=== PATIENT | male | born 1945 | race Caucasian/White ===

== ENCOUNTER → 2016-05-27 | Day surgery (SDC) | payer OTHER ==
[~2016-05-27] VITALS: Ht 172.7 cm; Wt 109.0 kg
[~2016-05-27] MED LIST: ACETAMINOPHEN 325 MG TAB PO PRN; ARIP2TAB3 PO; ATROPINE SULFATE 0.1 MG/ML 5ML SYR IV PRN; CITA40TA4 PO; DC ALL ANTICOAGULANTS ONE; DILT180C9 PO; HYT/10 PO; MECL1TAB42 PO; METH500T37 PO; MIDAZOLAM HCL 1 MG/ML 2ML VIAL ONE; OMEP40CA41 PO; ONDANSETRON INJ 2 MG/ML 2 ML VIAL IV PRN; SERT50TA PO; SIMV20TA5 PO; SODIUM CHLORIDE 0.9% 1000ML 1,000 ML IV ONE; SODIUM CHLORIDE 0.9% 1000ML 1,000 ML IV SCH; SODIUM CHLORIDE 0.9% 1000ML 250 ML IV PRN; TRAM-10 PO; ZCR40
[2016-05-27 07:18] VITALS: Ht 172.7 cm; Wt 109.0 kg
[2016-05-27 07:19] VITALS: BP 160/108; PULSE 91; TEMP 36.3; O2SAT 94
--- NOTE | 2016-05-27 08:21 | Procedure Note ---
Pre-Mod Sedation Assessment General Date of Moderate Sedation: May 27, 2016. Vital Signs: Vital Signs Past 12 Hours Date Time Temp Pulse Resp B/P Pulse Ox O2 Delivery O2 Flow Rate FiO2 05/27/16 07:19 36.3 91 16 160/108 94 Room Air Review Cardiovascular: regular rate, rhythm, + systolic murmur Abdomen: normal bowel sounds, non tender, soft Lungs: lungs clear, normal breath sounds Airway Class: I Pre-Sedation Airway Assessment Oral Cavity: Dentures, WNL Able to Visualize Vocal Cords: No Short Thick Neck: No Hx of Sleep Apnea: Yes Smoking Status: Former Smoker ASA Classification: Class I Procedure Planning Contraindications-for Mod Sed: None Yes Notes The planned sedation has been discussed with the patient and consent obtained. I have identified the patient, determined the appropriateness of sedation and have assessed the patient immediately prior to the procedure. All medicine(s) and interventions are by my order.
--- NOTE | 2016-05-27 08:47 | HISTORY & PHYSICAL EXAMINATION ---
DATE OF ADMISSION: 05/27/2016 CHIEF COMPLAINT: Aortic stenosis. HISTORY OF PRESENT ILLNESS: This is a 71-year-old male patient who I saw in the office in early April. He has a history of depression and had a resting tachycardia, I believe from his antidepressants, which have been adjusted and his tachycardia improved. The patient by echocardiography was noted to have moderate to severe aortic stenosis. The patient has been experiencing some shortness of breath with activity. The echocardiogram was not of the best quality and to determine the etiology of his shortness of breath and the extent of his aortic stenosis, so I thought it is best that we performed a cardiac catheterization. ALLERGIES: No known medical allergies. PAST MEDICAL HISTORY: The patient has a history of GERD and mild essential hypertension. He also has a history of dyslipidemia. He has benign prostatic hypertrophy with and previously has had some urinary tract retention. SOCIAL HISTORY: He is a nonsmoker. He is and lives with his . He stopped smoking in 1989. FAMILY MEDICAL HISTORY: Noncontributory. REVIEW OF SYSTEMS: A 10-point review of systems is negative except for the history of chief complaint. PHYSICAL EXAMINATION: GENERAL: He is alert and oriented, in no acute distress. VITAL SIGNS: Blood pressure 140/80, pulse is regular at 90 beats per minute. He is afebrile. HEENT: He is normocephalic. Pupils are equal and reactive to light. Extraocular muscles are intact bilaterally. NECK: The neck veins are flat. Carotids have good upstrokes bilaterally without bruits. Thyroid is nonpalpable. RESPIRATORY: Breath sounds are equal bilaterally and clear to auscultation. CARDIOVASCULAR: Heart has a regular rhythm. Normal S1, S2. No S3, S4. No cardiac rubs or murmurs. GASTROINTESTINAL: Abdomen is soft, nontender without organomegaly. EXTREMITIES: Free of edema, digit clubbing, or cyanosis. NEUROLOGIC: Grossly intact. SKIN: Warm to touch. LYMPH NODES: Negative to palpation. IMPRESSION: 1. Aortic stenosis of undetermined severity. 2. History of depression. 3. Chronic pain due to degenerative joint disease. 4. Dyslipidemia. 5. Mild essential hypertension. 6. History of mild sleep apnea. RECOMMENDATIONS: As outlined above, the patient will undergo a cardiac catheterization. I have explained the risks, benefits and intent of the procedure to him including the potential for catheter based intervention such as balloon angioplasty or intercoronary stents if necessary. The patient is agreeable and we will proceed.
--- NOTE | 2016-05-27 09:33 | Cardiac Catheterization ---
Procedure Note Procedure Date May 27, 2016. Pre-Procedure Diagnosis Valvular Disease AUC Score 9 Post-Procedure Diagnosis Moderate CAD, Normal Intracardiac Pressures, Cardiothoracic Finding (Mild aortic stenosis) Procedure(s) Performed Coronary Angiography, Left Heart Cath, Right Heart Cath, LV Angiography Computer Operations Manager Dr. Bailey Strap Setter(s) None Medication(s) Versed, Lidocaine 1% Summary of Findings Calcified coronaries. Mild to moderate nonobstructive CAD. Mild Aortic Stenosis. 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 Holding/Recovery ACC Data Cardiac Status Clinical evaluation leading to the procedure CAD Presntation: Sx unlikely to be ischemic Anginal Classification: No symptoms Heart Failure: No Cardiogenic Shock w/in 24Hrs: No Cardiac Arrest w/in 24Hrs: No Imaging studies past 6 months: Yes Stress studies past 6 months: No Coronary Anatomy Dominant: Right Left Main (% Stenosis): Distal (20) LAD (% Stenosis): Normal Circumflex (% Stenosis): Normal RCA (% Stenosis): Normal Left Ventricular Angiography EF (%): 60 Mitral Regurgitation: None Diagnostic Status: Elective Closure Device Percutaneous Entry Location: Femoral Closure Device: Mynx Recommendations: Medical therapy and/or Counseling
--- NOTE | 2016-05-27 09:43 | Discharge Instructions ---
Discharge Instructions Procedure Procedure Date: May 27, 2016. Reason for Visit: Lesco To Do L & R Cath, Aortic Stenosis. Discharge Discharge Date: May 27, 2016. Discharge Diagnosis: Mild aortic stenosis and minor CAD Last Recorded Wt (Kilograms): 109 Anesthesia Post Anesthesia Instructions: If you have had General Anesthesia or IV Sedation: * Do not drive today. * Resume driving when surgeon permits. * Do not make important decisions or sign legal documents today. * Call surgeon for: 1. Temperature elevations greater than 101 degrees F. 2. Uncontrollable pain. 3. Excessive bleeding. 4. Persistent nausea and vomiting. 5. Medication intolerance (nausea, vomiting or rash). * For nausea and vomiting use only clear liquids such as: tea, soda, bouillon until nausea subsides, then gradually increase diet as tolerated. * If you have any concerns or questions, call your surgeon's office. If physician is unavailable and it is an emergency, call 911 or go to the nearest emergency room. Instructions Activity Recommendations: limitations Recommended Home Diet: resume previous diet Allergies: Coded Allergies: No Known Allergies (Unverified , 12/29/13) Provider Instructions ACTIVITY RECOMMENDATIONS: It is common to feel weak and fatigue for a few days. * Do not drive or operate any motorized equipment for the next three days. * Limit stair usage (2 or 3 trips a day only) for the next three days. * Do not lift anything heavier than 10 pounds for the next three days. * Do not engage in vigorous exercise or any sports for the next five days. * You may shower the day after your procedure, but do not immerse the area for three days. Cleanse the site gently with soap and water. SPECIAL CARE INSTRUCTIONS: * You may replace the pressure dressing or band-aid the morning after the procedure. * After your procedure, it is normal to have a small bruise or small lump at the site. Examine your site daily for any change in the bruise or lump, redness, swelling, drainage or numbness. Notify your doctor if any change. BLEEDING: * If there is a small amount of bleeding at the site, lie down and apply firm pressure with a clean cloth for ten minutes. When the bleeding stops, lie quietly keeping the procedure limb straight for six hours. Notify your doctor as soon as possible. * If the bleeding does not stop after ten minutes or if there is a large amount of bleeding or spurting, call 911 immediately. Continue to lie down and hold firm pressure until help arrives. SKIN IRRITATION: * You may experience some redness and/or swelling in the area where radiation was administered. If any skin irritation occurs, please contact your family physician. FOLLOW UP VISIT: Keep any scheduled doctor appointments. Follow Up Follow-up with: Office will call with follow-up 1-2 weeks Radha Godinez Recommendations: Call your doctor if: * Temperature above 101 degrees * Pain not relieved by pain medicine ordered * There is increased drainage or redness from any incision * You have any unanswered questions or concerns. Your Doctors Instructions noted above were prepared by provider Franco Bailey. Patient Signature Section: Patient Instructions Signature Page Kye Lechuga Patient (or Guardian) Signature/Date: I have read and understand the instructions given to me by my caregivers. Caregiver/RN/Doctor Signature/Date: The above-named patient and/or guardian has received patient instructions on this date. + Original Patient Signature Page (only) stays with chart. Please make copy for patient.
--- NOTE | 2016-05-27 10:22 | CARDIAC CATH REPORT ---
PROCEDURES: 1. Right heart catheterization. 2. Left heart catheterization. 3. Coronary angiography. 4. Left ventriculography. HISTORY OF PRESENT ILLNESS: The patient is a 71-year-old male who has had shortness of breath. He had an echocardiogram that suggested aortic stenosis, but the quality of the study was not good and the degree of aortic stenosis was unknown. I discussed with the patient the option of a cardiac catheterization and he agreed. PROCEDURE SUMMARY: After informed consent was obtained, the patient was taken to the cardiac catheterization lab where he was prepped and draped in the usual manner for a right transfemoral approach. Preformed 5-Gambian diagnostic catheter was utilized for the coronary angiograms. A 5-Gambian pigtail catheter was utilized for the left ventriculogram. A [place]Sh[place] catheter was used for right heart pressures and cardiac outputs. 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 HEMODYNAMIC DATA: Right atrial pressure is a mean of 9. Right ventricular pressure is 37/13. Pulmonary artery pressure is 35/14. Pulmonary capillary wedge pressure is a mean of 15. Central aortic pressure is 135/70. Left ventricular pressure is 145/16. The mean gradient across the aortic valve is 15 mmHg. Cardiac output by thermal dilution is 6.5. The estimated aortic valve area is 1.53. Cardiac output by Bhumi equation is 5.6 and the estimated aortic valve area is 1.32 cm2. CORONARY ANGIOGRAPHY: Under fluoroscopy the coronary anatomy is calcified. Selective injections of the left coronary artery revealed minor tapering of the left main trunk with a 20% stenosis distally. The left circumflex artery consists principally of a large lateral marginal branch. Left circumflex artery is widely patent. The LAD has luminal irregularities which are diffuse with the artery as well as the diagonal branches are widely patent. Selective injections of the right coronary artery revealed to be dominant. The right coronary artery is widely patent with a 20% tapering at the bifurcation of the PDA and posterior lateral branch. LEFT VENTRICULOGRAM: The left ventricle is of normal size with normal systolic function. The mitral valve is competent. SUMMARY: The patient has mild aortic stenosis with normal left ventricular function. Although the coronary anatomy is calcified, the major epicardial vessels are widely patent with only minor narrowing in the distal right coronary artery and distal left main trunk. RECOMMENDATIONS: The recommendations are for continued medical management of the patient's aortic stenosis and coronary artery disease.
[2016-05-27 11:14] LABS: ISTAT ARTERIAL BLOOD GAS HCO3 28 meq/L (19-24); ISTAT ARTERIAL BLOOD GAS PCO2 52 mmHg (35-46); ISTAT ARTERIAL BLOOD GAS PO2 64 mmHg (80-95); ISTAT ARTERIAL BLOOD GAS pH 7.34 (7.35-7.45); ISTAT CARBON DIOXIDE 30 mEq/l (24-31)
[2016-05-27 12:21] LABS: ISTAT ARTERIAL BLOOD GAS HCO3 30 meq/L (19-24); ISTAT ARTERIAL BLOOD GAS PCO2 57 mmHg (35-46); ISTAT ARTERIAL BLOOD GAS PO2 35 mmHg (80-95); ISTAT ARTERIAL BLOOD GAS pH 7.33 (7.35-7.45); ISTAT CARBON DIOXIDE 32 mEq/l (24-31)
[2016-05-27 13:30] VITALS: BP 140/66; PULSE 80; O2SAT 96
== END | disposition home or self-care (01) ==
LOC: C.CATH 06:49
PROVIDERS: ATTEND Internal Medicine Interventional Cardiology
DX: I35.0 Nonrheumatic aortic (valve) stenosis (principal); E78.5 Hyperlipidemia, unspecified; K21.9 Gastro-esophageal reflux disease without esophagitis; E66.9 Obesity, unspecified; N40.1 Benign prostatic hyperplasia with lower urinary tract symptoms; R33.9 Retention of urine, unspecified; G47.33 Obstructive sleep apnea (adult) (pediatric); Z87.891 Personal history of nicotine dependence; M19.90 Unspecified osteoarthritis, unspecified site; I10 Essential (primary) hypertension